=== PATIENT | male | born 1990 | race Caucasian/White ===

== ENCOUNTER 2021-01-18 03:14 | Emergency (ER) | payer BC, SELFPAY ==
[2021-01-18 03:30] VITALS: BMI 21.5
[2021-01-18 03:32] VITALS: BP 142/80; PULSE 83; RESP 18; TEMP 36.7; O2SAT 99; BMI 20.9
--- NOTE | 2021-01-18 03:45 | PC.NURSE ---
offered to check patient for covid and strep. patient denied.
[2021-01-18 04:05] LABS: Amphetamine/Metha Screen,Urine Negative ng/ml (<1000); Benzodiazepines Screen,Urine Negative ng/ml (<200)
[2021-01-18 04:06] LABS: Barbiturates Screen,Urine Negative ng/ml (<200); Cannabinoid Screen,Urine Negative ng/ml (<50)
[2021-01-18 04:07] LABS: Cocaine Screen,Urine Negative ng/ml (<300)
[2021-01-18 04:08] LABS: Methadone Screen,Urine Negative ng/ml (<300); Opiate Screen,Urine Negative ng/ml (<300)
[2021-01-18 04:09] LABS: Phencyclidine Screen,Urine Negative ng/ml (<25)
[2021-01-18 04:16] VITALS: BP 117/82; PULSE 78; RESP 18; TEMP 36.7; O2SAT 100
== END 2021-01-18 04:18 | disposition left against medical advice (07) ==
PROVIDERS: Emergency Provider Emergency Medicine
DX: Z53.21 Procedure and treatment not carried out due to patient leaving prior to being seen by health care provider (principal); K14.8 Other diseases of tongue
CPT/HCPCS: 80305; 99211

== ENCOUNTER 2022-05-06 10:02 | Emergency (ER) | payer BC, SELFPAY ==
[2022-05-06 11:22] VITALS: BP 0/0; PULSE 0; RESP 0; TEMP -17.7; TEMP 0
== END 2022-05-06 11:23 | disposition left against medical advice (07) ==
LOC: UTC 10:07
PROVIDERS: Emergency Provider Nurse Practitioner Family
DX: Z53.21 Procedure and treatment not carried out due to patient leaving prior to being seen by health care provider (principal)